=== PATIENT | male | born 1950 | race Caucasian/White ===

== ENCOUNTER → 2017-03-15 | Outpatient (CLI) | payer MEDICARE ==
[~2017-03-15] MED LIST: ALBUTEROL SULFATE 0.083% NEB 2.5 MG/3 ML AMPUL NEB ONE
--- NOTE | 2017-03-16 09:21 | PULMONARY FUNCTION TEST ---
DATE OF SERVICE: 03/15/2017 THE VITAL CAPACITY IS SLIGHTLY DECREASED. THE EXPIRATORY FLOW RATES ARE SLIGHTLY DECREASED. THE FEV1/VC IS 75%, PREDICTED: 79% LUNG VOLUMES BY NITROGEN WASH OUT METHOD SHOW: TLC IS 87% OF PREDICTED FRC IS 76% OF PREDICTED RV IS 76% OF PREDICTED THE DLCO IS 22.4, 90% OF PREDICTED. THE RV/TLC RATIO IS 34% PREDICTED 40% AFTER BRONCHODILATOR, EXPIRATORY FLOW RATES SHOW NO SIGNIFICANT CHANGE. IMPRESSION: GOOD PATIENT EFFORT. SLIGHT RESTRICTIVE DEFECT. CC: CHARIS ROMAN MD > AS[facility]
== END ==
LOC: RT 10:12
PROVIDERS: ATTEND Internal Medicine Pulmonary Disease
DX: J45.20 Mild intermittent asthma, uncomplicated (principal)
CPT/HCPCS: 94729 ×2; 94727 ×2; 94060 ×2; A9270

== ENCOUNTER 2019-06-13 20:40 | Emergency (ER) | payer MEDICARE ==
--- NOTE | 2019-06-13 20:57 | ER Document Report ---
ED Medical Screen (RME) - General Chief Complaint: Arm Injury Stated Complaint: LEFT ARM INJURY/FALL Time Seen by Provider: 06/13/19 20:53 Primary Care Provider: JANNETH CHRISTIANSEN MD [Primary Care Provider] - Follow up as needed Mode of Arrival: Ambulatory Information source: Patient Notes: This 69-year-old male presents emergency department with complaints of left shoulder pain right wrist pain after he fell out his front door and landed on his shoulder and wrist. He reports he did not get dizzy he just missed a step and fell. Patient reports he did not hit his head but he is taking Coumadin. No obvious deformity to the right wrist. Patient has a history of shoulder dislocation. Left arm in a sling patient made. I have greeted and performed a rapid initial assessment of this patient. A comprehensive ED assessment and evaluation of the patient, analysis of test results and completion of the medical decision making process will be conducted by additional ED providers. TRAVEL OUTSIDE OF THE [place] IN LAST 30 DAYS: No - Related Data Allergies/Adverse Reactions: No Known Allergies Allergy (Unverified 07/05/13 08:59) Past Medical History - Past Medical History Cardiac Medical History: Reports: Hx Atrial Fibrillation, Hx Coronary Artery Disease, Hx Hypertension Denies: Hx Heart Attack Pulmonary Medical History: Reports: Hx Asthma Denies: Hx Bronchitis, Hx COPD, Hx Pneumonia Neurological Medical History: Denies: Hx Cerebrovascular Accident, Hx Seizures Musculoskeltal Medical History: Denies Hx Arthritis Past Surgical History: Reports: Hx Cardiac Catheterization - Immunizations Immunizations up to date: No Hx Diphtheria, Pertussis, Tetanus Vaccination: No Doctor's Discharge - Discharge Referrals: JANNETH CHRISTIANSEN MD [Primary Care Provider] - Follow up as needed
--- NOTE | 2019-06-13 22:20 | RADIOLOGY REPORT (SQ) ---
EXAM DESCRIPTION: XR SHOULDER 2 OR MORE VIEWS COMPLETED DATE/TME: 06/13/2019 20:54 CLINICAL HISTORY: 69 years, Male, FALL, HIT SHOULDER WRIST, ON COUMADIN COMPARISON: None. NUMBER OF VIEWS: 2 TECHNIQUE: 2 view left shoulder LIMITATIONS: None. FINDINGS: Osteopenia. Comminuted mildly displaced fracture of the proximal humeral neck with mild displacement of the greater tubercle. Widening of the acromioclavicular joint consistent with AC separation. Degenerative changes of the a.c. and glenohumeral joints. IMPRESSION: Comminuted fracture of the proximal humerus. Osteopenia. Widening of the AC joint consistent with AC separation. copyright 2010 [employer]- All Rights Reserved
--- NOTE | 2019-06-13 22:22 | RADIOLOGY REPORT (SQ) ---
EXAM DESCRIPTION: XR WRIST 3 OR MORE VIEWS COMPLETED DATE/TME: 06/13/2019 20:54 CLINICAL HISTORY: 69 years, Male, FALL, HIT SHOULDER WRIST, ON COUMADIN COMPARISON: None. NUMBER OF VIEWS: 3 TECHNIQUE: 3 views right wrist LIMITATIONS: None. FINDINGS: Osteopenia. Vascular calcifications. Negative for acute fracture or dislocation. Old healed fracture of the base of the first metacarpal. IMPRESSION: Osteopenia with degenerative change. Old fracture of the first metacarpal copyright 2010 [employer]- All Rights Reserved
--- NOTE | 2019-06-13 22:23 | RADIOLOGY REPORT (SQ) ---
EXAM DESCRIPTION: CT HEAD WITHOUT IV CONTRAST COMPLETED DATE/TME: 06/13/2019 20:54 CLINICAL HISTORY: 69 years, Male, FALL, ON COUMADIN COMPARISON: None. TECHNIQUE: 195 Images stored on PACS. All CT scanners at this facility use dose modulation, iterative reconstruction, and/or weight based dosing when appropriate to reduce radiation dose to as low as reasonably achievable (ALARA). [facility]: Dose Right [facility]: CareDose [facility]: Dose Right [facility]: Teradose 4D [facility]: VisualCV LIMITATIONS: None. FINDINGS: The globes are intact. Mucosal thickening with near complete opacification of the right maxillary sinus. No displaced or depressed skull fracture. No intra or extra-axial hemorrhage. CT is limited for evaluation of acute infarct. No CT evidence for large or territorial acute infarct. Mild atrophy and minor small vessel ischemic change. Cavum septum pellucidum variant. IMPRESSION: Mild atrophy and small vessel ischemic change. TECHNICAL DOCUMENTATION: Quality ID # 436: Final reports with documentation of one or more dose reduction techniques (e.g., Automated exposure control, adjustment of the mA and/or kV according to patient size, use of iterative reconstruction technique) copyright 2010 [employer]- All Rights Reserved
[2019-06-13 23:56] LABS: INTERNATIONAL RATION (INR) 2.19; PROTHROMBIN TIME 24.7 SEC (11.4-15.4)
--- NOTE | 2019-06-14 01:35 | ER Document Report ---
ED General - General Chief Complaint: Arm Injury Stated Complaint: LEFT ARM INJURY/FALL Time Seen by Provider: 06/13/19 20:53 Primary Care Provider: JANNETH CHRISTIANSEN MD [ACTIVE STAFF] - Follow up as needed Mode of Arrival: Ambulatory TRAVEL OUTSIDE OF THE [place] IN LAST 30 DAYS: No - HPI Notes: 69M arrives ambulatory in private vehicle, accompanied by family, after ~20:00, a few hours ago now, he fell off the front step at daughter's house and landing onto L shoulder predominantly. EMS called, supplied sling. chiefly c/o pain L shoulder and upper arm. denies neck or head pain. denies sensory change or any bleeding. no loc. reports no prior falls or tendency to fall. denies any AC/AP meds. daughter corroborates one of her steps is taller than expected and many people trip on it. daughter feels like he took all impact falling onto his upper extremitiy. they helped him up and he's been ambulatory but holding arm to side. pt hasn't taken any meds for pain, on arrival to ED reported to've declined tylenol. - Related Data Allergies/Adverse Reactions: No Known Allergies Allergy (Unverified 07/05/13 08:59) Home Medications: advair, amiodorone, cymbalta, gabapentin, lisinopril, lasix, singulair, coumadin omeprazole, Past Medical History - General Information source: Patient - Social History Smoking Status: Never Smoker Family History: Reviewed & Not Pertinent Patient has suicidal ideation: No Patient has homicidal ideation: No - Past Medical History Cardiac Medical History: Reports: Hx Atrial Fibrillation, Hx Coronary Artery Disease, Hx Hypertension Denies: Hx Heart Attack Pulmonary Medical History: Reports: Hx Asthma Denies: Hx Bronchitis, Hx COPD, Hx Pneumonia Neurological Medical History: Denies: Hx Cerebrovascular Accident, Hx Seizures Musculoskeletal Medical History: Denies Hx Arthritis Past Surgical History: Reports: Hx Cardiac Catheterization - Immunizations Immunizations up to date: No Hx Diphtheria, Pertussis, Tetanus Vaccination: No Hx Pneumococcal Vaccination: 06/20/08 Review of Systems - Review of Systems Constitutional: No symptoms reported EENT: No symptoms reported Cardiovascular: No symptoms reported Respiratory: No symptoms reported Gastrointestinal: No symptoms reported Genitourinary: No symptoms reported Male Genitourinary: No symptoms reported Musculoskeletal: See HPI. denies: Back pain, Joint swelling, Neck pain, Deformity Skin: No symptoms reported Hematologic/Lymphatic: No symptoms reported Neurological/Psychological: No symptoms reported Physical Exam - Vital signs Vitals: Temp Pulse Resp BP Pulse Ox 97.6 F 65 18 127/76 H 94 06/13/19 20:55 06/13/19 20:55 06/13/19 20:55 06/13/19 20:55 06/13/19 20:55 Interpretation: Normal - General General appearance: Appears well, Alert - HEENT Head: Normocephalic, Atraumatic Eyes: Normal Pupils: PERRL - Respiratory Respiratory status: No respiratory distress Chest status: Nontender. No: Splinting Breath sounds: Normal. No: Decreased air movement Chest palpation: Normal. No: Subcutaneous emphysema, Ecchymosis, Wounds - Cardiovascular Rhythm: Regular Heart sounds: Normal auscultation Murmur: No Pulses: Normal: Brachial, Radial, Dorsalis pedis Normal capillary refill: Yes - Abdominal Inspection: Normal Distension: No distension Bowel sounds: Normal Tenderness: Nontender Organomegaly: No organomegaly - Back Back: Normal, Nontender - Extremities General lower extremity: Normal inspection, Nontender, Normal color, Normal ROM, Normal temperature, Normal weight bearing. No: Saurav's sign Shoulder: Tender, Abrasion, Limited ROM, Other - is able to demonstrate active ROM through ~half of shoulder flexion, difficulty w/ abducting L arm. on isolation of elbow/shoulder able to actrively supinate pronate. no point bony ttp hand wrist, forearm, ++ttp AC joint, glenohumeral joint intact but above rom limited. L wrist full rom no ttp/deformity. R wrist abrasion no snuffbox ttp swelling or deformity.. No: Deformity, Dislocation, Instability, Laceration - Neurological Neuro grossly intact: Yes Cognition: Normal Orientation: AAOx4 [place] Coma Scale Eye Opening: Spontaneous [place] Coma Scale Verbal: Oriented [place] Coma Scale Motor: Obeys Commands [place] Coma Scale Total: 15 Speech: Normal Motor strength normal: LUE, RUE, LLE, RLE Additional motor exam normals: Other - all distributions of median, radial, ulnar nerves of BUE are intact for sensory and motor functions. Sensory: Normal - Psychological Associated symptoms: Normal affect, Normal mood - Skin Skin Temperature: Warm Skin Moisture: Dry Skin Color: Normal Course - Re-evaluation Re-evalutation: pt felt somewhat better after supplying immobilizing sling for comfort and lidocaine patch and tylenol. thorough secondary msk exam showed only injury that initially imaged, L prox comm humerus fx and AC joint widening separation. on serial exams while observed in dept remained fully intact n/v status. didn't develop any neuro complaints, sheldon or neck pain while observed. spoke w/ dr ray who can see him outpt. i discussed w/ pt and family that rehab will be a major factor in ensuring he regains function and pain improves. many cases do well, but some do require longer periods of therapy/rehab visits. they understand and will call cory's office for 1st available. - Vital Signs Vital signs: Temp Pulse Resp BP Pulse Ox 97.6 F 104 H 18 146/92 H 98 06/14/19 02:51 06/14/19 02:51 06/14/19 02:51 06/14/19 02:51 06/14/19 02:51 - Laboratory Laboratory results interpreted by me: 06/13/19 23:40 PT 24.7 H - Diagnostic Test Radiology reviewed: Image reviewed, Reports reviewed Radiology results interpreted by me: Head CT 06/13/19 20:54 IMPRESSION: Mild atrophy and small vessel ischemic change. TECHNICAL DOCUMENTATION: Quality ID # 436: Final reports with documentation of one or more dose reduction techniques (e.g., Automated exposure control, adjustment of the mA and/or kV according to patient size, use of iterative reconstruction technique) copyright 2011 [employer]- All Rights Reserved Shoulder X-Ray 06/13/19 20:54 IMPRESSION: Comminuted fracture of the proximal humerus. Osteopenia. Widening of the AC joint consistent with AC separation. copyright 2011 [employer]- All Rights Reserved Wrist X-Ray 06/13/19 20:54 IMPRESSION: Osteopenia with degenerative change. Old fracture of the first metacarpal copyright 2011 [employer]- All Rights Reserved Discharge - Discharge Clinical Impression: AC joint dislocation Qualifiers: Encounter type: initial encounter Laterality: left Qualified Code(s): S43.102A - Unspecified dislocation of left acromioclavicular joint, initial encounter Fracture of humeral head, left, closed Qualifiers: Encounter type: initial encounter Qualified Code(s): S42.292A - Other displaced fracture of upper end of left humerus, initial encounter for closed fracture Condition: Fair Disposition: HOME, SELF-CARE Additional Instructions: Today your x-ray showed separation of your AC joint and the outer part of your humeral head or your upper arm arm bone head as fractured. Both of these injuries are usually conservatively managed but require specific rehabilitation therefore I would like you to call the orthopedic doctor office tomorrow and get a follow-up further both of these. Keeping in the sling to prevent further injuries and for comfort has been provided for you in the ER. You can do 650 of Tylenol by mouth every 6 hours for baseline pain control. As long as you have no history of GI bleeding or ulcers you can do 400 mg ibuprofen once every 6 ho urs only if not responding to acetaminophen, but since you are already on blood thinners I would rather you stick to the acetaminophen and take ibuprofen only a few times every 6 hours if you need to and continue to eat and drink well. You can continue to take your Coumadin to stay anticoagulated your INR today was 2.19. Its important you return immediately if you have any numbness or tingling or clumsiness or weakness or significant swelling in your left upper extremity try to keep the limb elevated throughout the day to help with swelling. You can also ice few times a day in the next few days to reduce swelling as well. Please call your orthopedic doctor Dr. de paz tomorrow to get the next available appointment for follow-up Prescriptions: Oxycodone HCl [Oxy-Ir 5 mg Tablet] 5 mg PO Q4HP PRN #18 tab PRN Reason: Lidocaine [Lidocaine Pain Relief] 1 each TP Q12HP PRN #3 adh..patch PRN Reason: Referrals: JANNETH CHRISTIANSEN MD [ACTIVE STAFF] - Follow up as needed
[2019-06-14] MEDS ORDERED: LIDOCAINE 5% (700 MG) TRANSDERMAL ADH..PATCH TP STA (01:54)
[2019-06-14] MEDS ORDERED: ACETAMINOPHEN 325 MG TABLET PO ONE (01:54)
[2019-06-14 02:54] VITALS: BP 146/92
== END 2019-06-14 02:50 | disposition home or self-care (01) ==
LOC: ER 20:40
DX: S42.202A Unspecified fracture of upper end of left humerus, initial encounter for closed fracture (principal); S43.102A Unspecified dislocation of left acromioclavicular joint, initial encounter; W10.9XXA Fall (on) (from) unspecified stairs and steps, initial encounter; Y92.009 Unspecified place in unspecified non-institutional (private) residence as the place of occurrence of the external cause; M85.812 Other specified disorders of bone density and structure, left shoulder; I48.91 Unspecified atrial fibrillation; I25.10 Atherosclerotic heart disease of native coronary artery without angina pectoris; I10 Essential (primary) hypertension; J45.909 Unspecified asthma, uncomplicated; Z79.51 Long term (current) use of inhaled steroids; Z79.899 Other long term (current) drug therapy; Z79.01 Long term (current) use of anticoagulants
CPT/HCPCS: 99284; 36415; 85610; 73030; 73110; 70450; L3650